=== PATIENT | male | born 1960 | race American Indian/Alaskan Native ===

== ENCOUNTER 2020-03-12 01:59 | Emergency (ER) | payer MEDICAID ==
--- NOTE | 2020-03-12 02:17 | EDM.PDOCBH ---
ED HPI GENERAL MEDICAL PROBLEM - General Chief Complaint: Drug or Alcohol Abuse Stated Complaint: MEDICAL VIA [facility] Time Seen by Provider: 03/12/20 02:10 Source of Information: Reports: Patient, EMS History Limitations: Reports: Intoxication - History of Present Illness INITIAL COMMENTS - FREE TEXT/NARRATIVE: 59-year-old male who is been drinking for a month, tonight his anxiety seemed worse than usual and he thought he was in an irregular heartbeat so he called the ambulance. He wants to go to treatment. It has been a year since he is been to detox. He was given some Versed by EMS in route for his "anxiety". He is not complaining of pain. Onset: Unknown/Unsure Duration: Week(s): (Has been drinking daily for several weeks) Associated Symptoms: Reports: Other (Palpitations). Denies: Chest Pain, Cough Treatments ACADEMIC ADVISOR: Reports: Aspirin, EKG knees Pain Score (Numeric/FACES): 8 - Related Data Allergies Allergy/AdvReac Type Severity Reaction Status Date / Time No Known Allergies Allergy Verified 03/12/20 02:01 Home Meds: Home Meds Aspirin [Adult Low Dose Aspirin EC] 162 mg PO DAILY 03/12/20 [History] Cetirizine HCl [Zyrtec] 10 mg PO DAILY 03/12/20 [History] tiZANidine [Zanaflex] 4 mg PO BID 03/12/20 [History] Past Medical History Neurological History: Reports: Concussion, TIA - Past Surgical History GI Surgical History: Reports: Colonoscopy Musculoskeletal Surgical History: Reports: Knee Replacement Social & Family History - Tobacco Use Smoking Status *Q: Current Every Day Smoker Years of Tobacco use: 45 Packs/Tins Daily: 1 - Caffeine Use Caffeine Use: Reports: None - Alcohol Use Days Per Week of Alcohol Use: 7 Number of Drinks Per Day: 15 Total Drinks Per Week: 105 Date of Last Drink: 03/12/20 Time of Last Drink: 00:00 - Recreational Drug Use Recreational Drug Use: Yes Recreational Drug Type: Reports: Marijuana/Hashish Recreational Drug Use Frequency: Daily ED ROS GENERAL - Review of Systems Review Of Systems: See Below Constitutional: Denies: Fever, Chills HEENT: Reports: No Symptoms Respiratory: Denies: Shortness of Breath Cardiovascular: Reports: Palpitations. Denies: Chest Pain GI/Abdominal: Reports: Nausea. Denies: Vomiting Skin: Reports: No Symptoms Neurological: Reports: Dizziness. Denies: Headache ED EXAM, BEHAVIORAL HEALTH - Physical Exam Exam: See Below Exam Limited By: No Limitations General Appearance: Alert, No Apparent Distress Eye Exam: Bilateral Eye: EOMI, Other Respiratory/Chest: No Respiratory Distress, Lungs Clear Cardiovascular: Regular Rate, Rhythm Extremities: Normal Inspection (Well-healed surgical scars over the knees, no peripheral edema) Neurological: Oriented x 3 Psychiatric: Alert, Normal Affect, Other (Somewhat anxious but cooperative and polite) COURSE, BEHAVIORAL HEALTH COMP - Course Vital Signs: Last Vital Signs Temp 98.9 F 03/12/20 02:02 Pulse 81 03/12/20 02:02 Resp 18 03/12/20 02:02 BP 135/74 03/12/20 02:02 Pulse Ox 94 L 03/12/20 02:02 Orders, Labs, Meds: Laboratory Tests 03/12/20 03/12/20 03/12/20 Range/Units 02:20 02:20 02:20 WBC 5.4 (4.5-11.0) K/uL RBC 5.34 (4.30-5.90) M/uL Hgb 16.3 H (12.0-15.0) g/dL Hct 49.5 (40.0-54.0) % MCV 93 (80-98) fL MCH 31 (27-31) pg MCHC 33 (32-36) % Plt Count 90 L (150-400) K/uL Neut % (Auto) 49 (36-66) % Lymph % (Auto) 39 (24-44) % [place] % (Auto) 10 H (2-6) % Eos % (Auto) 2 (2-4) % Baso % (Auto) 1 (0-1) % Sodium 140 (140-148) mmol/L Potassium 3.9 (3.6-5.2) mmol/L Chloride 103 (100-108) mmol/L Carbon Dioxide 29 (21-32) mmol/L Anion Gap 11.9 (5.0-14.0) mmol/L BUN 4 L (7-18) mg/dL Creatinine 0.9 (0.8-1.3) mg/dL Est Cr Clr Drug Dosing 89.00 mL/min Estimated GFR (MDRD) > 60 (>60) Glucose 93 (74-106) mg/dL Calcium 7.7 L (8.5-10.1) mg/dL Urine Opiates Screen (NEGATIVE) Ur Oxycodone Screen (NEGATIVE) Urine Methadone Screen (NEGATIVE) Ur Propoxyphene Screen (NEGATIVE) Ur Barbiturates Screen (NEGATIVE) Ur Tricyclics Screen (NEGATIVE) Ur Phencyclidine Scrn (NEGATIVE) Ur Amphetamine Screen (NEGATIVE) U Methamphetamines Scrn (NEGATIVE) Urine MDMA Screen (NEGATIVE) U Benzodiazepines Scrn (NEGATIVE) U Cocaine Metab Screen (NEGATIVE) U Marijuana (THC) Screen (NEGATIVE) Ethyl Alcohol 328 mg/dL 03/12/20 Range/Units 02:21 WBC (4.5-11.0) K/uL RBC (4.30-5.90) M/uL Hgb (12.0-15.0) g/dL Hct (40.0-54.0) % MCV (80-98) fL MCH (27-31) pg MCHC (32-36) % Plt Count (150-400) K/uL Neut % (Auto) (36-66) % Lymph % (Auto) (24-44) % [place] % (Auto) (2-6) % Eos % (Auto) (2-4) % Baso % (Auto) (0-1) % Sodium (140-148) mmol/L Potassium (3.6-5.2) mmol/L Chloride (100-108) mmol/L Carbon Dioxide (21-32) mmol/L Anion Gap (5.0-14.0) mmol/L BUN (7-18) mg/dL Creatinine (0.8-1.3) mg/dL Est Cr Clr Drug Dosing mL/min Estimated GFR (MDRD) (>60) Glucose (74-106) mg/dL Calcium (8.5-10.1) mg/dL Urine Opiates Screen Negative (NEGATIVE) Ur Oxycodone Screen Negative (NEGATIVE) Urine Methadone Screen Negative (NEGATIVE) Ur Propoxyphene Screen Negative (NEGATIVE) Ur Barbiturates Screen Negative (NEGATIVE) Ur Tricyclics Screen Negative (NEGATIVE) Ur Phencyclidine Scrn Negative (NEGATIVE) Ur Amphetamine Screen Negative (NEGATIVE) U Methamphetamines Scrn Negative (NEGATIVE) Urine MDMA Screen Negative (NEGATIVE) U Benzodiazepines Scrn Negative (NEGATIVE) U Cocaine Metab Screen Negative (NEGATIVE) U Marijuana (THC) Screen Presumptive positive H (NEGATIVE) Ethyl Alcohol mg/dL Re-Assessment/Re-Exam: EtOH, urine drug screen, CBC and BMP obtained. Detox does have a male bed available. EtOH returned 0.328, patient was sleeping soundly within 20 minutes of being in the emergency room. [facility] was called, patient is willing to go to detox. Departure - Departure Time of Disposition: 04:46 Disposition: DC/Tfer to Other 70 Clinical Impression: Alcohol abuse - Discharge Information Instructions: Alcohol Abuse and Dependence Information, Adult Referrals: PCP,None [Primary Care Provider] - Forms: ED Department Discharge Care Plan Goals: Patient is to be transferred to [facility] for detox from chronic alcoholism. Sepsis Event Note (ED) - Evaluation Sepsis Screening Result: No Definite Risk - Focused Exam Vital Signs: Vital Signs Temp Pulse Resp BP Pulse Ox 03/12/20 02:02 98.9 F 81 18 135/74 94 L
== END 2020-03-12 04:46 | disposition other institution (70) ==
LOC: JP.ED 01:59
DX: F10.10 Alcohol abuse, uncomplicated (principal); F17.210 Nicotine dependence, cigarettes, uncomplicated; Y90.7 Blood alcohol level of 200-239 mg/100 ml
CPT/HCPCS: 36415; 80048; 80305-QW; 80307; 85025; 99283; 99285

== ENCOUNTER 2020-10-18 11:38 | Emergency (ER) | payer MEDICARE, MEDICAID ==
[2020-10-18] MEDS ORDERED: Lidocaine 1% with EPINEPHrine 1:100,000 50 ML MDV SUBCUT STA (11:52)
[2020-10-18] MEDS ORDERED: Bacitracin Oint 1 GM U/D Packet TOP ONE (11:52)
--- NOTE | 2020-10-18 11:55 | EDM.PDOCBH ---
ED HPI GENERAL MEDICAL PROBLEM - General Chief Complaint: Drug or Alcohol Abuse Stated Complaint: FALL VIA [facility] Time Seen by Provider: 10/18/20 11:49 Source of Information: Reports: Patient, EMS, RN Notes Reviewed History Limitations: Reports: Intoxication - History of Present Illness INITIAL COMMENTS - FREE TEXT/NARRATIVE: 60-year-old gentleman presents emergency department today via EMS services, he admits to consuming alcohol this morning he has fallen hit his head but is unsure if there is any loss of consciousness he does have a laceration above his right eye he would like to go to [facility] [place] [facility] detoxification facility Right Eye Pain Score (Numeric/FACES): 2 - Related Data Allergies Allergy/AdvReac Type Severity Reaction Status Date / Time No Known Allergies Allergy Verified 10/18/20 11:42 Home Meds: Home Meds Aspirin [Adult Low Dose Aspirin EC] 162 mg PO DAILY 03/12/20 [History] Cetirizine HCl [Zyrtec] 10 mg PO DAILY 03/12/20 [History] tiZANidine [Zanaflex] 4 mg PO BID 03/12/20 [History] Past Medical History Neurological History: Reports: Concussion, TIA Psychiatric History: Reports: Addiction - Past Surgical History GI Surgical History: Reports: Colonoscopy Musculoskeletal Surgical History: Reports: Knee Replacement Social & Family History - Tobacco Use Tobacco Use Status *Q: Current Every Day Tobacco User Years of Tobacco use: 28 Packs/Tins Daily: 1.5 - Caffeine Use Caffeine Use: Reports: None - Alcohol Use Days Per Week of Alcohol Use: 7 Number of Drinks Per Day: 7 Total Drinks Per Week: 49 - Recreational Drug Use Recreational Drug Use: Yes Recreational Drug Type: Reports: Marijuana/Hashish Recreational Drug Use Frequency: Daily ED ROS GENERAL - Review of Systems Review Of Systems: See Below Constitutional: Reports: No Symptoms Respiratory: Reports: No Symptoms Cardiovascular: Reports: No Symptoms GI/Abdominal: Reports: No Symptoms Skin: Reports: Wound ED EXAM, BEHAVIORAL HEALTH - Physical Exam Exam: See Below (Wheelchair) Exam Limited By: Intoxication General Appearance: Alert, No Apparent Distress Eye Exam: Bilateral Eye: PERRL Nose: Normal Inspection, Normal Mucosa, No Blood, Other (No visualized hematoma). No: Clear Rhinorrhea Head: Normocephalic, Facial Tenderness, Other (Laceration above right eye) Neck: Normal Inspection, Supple, Non-Tender, Full Range of Motion Respiratory/Chest: No Respiratory Distress, Lungs Clear, Normal Breath Sounds, No Accessory Muscle Use, Chest Non-Tender Cardiovascular: Regular Rate, Rhythm, No Murmur GI/Abdominal: Soft, Non-Tender ED LACERATION PROCEDURES - Laceration/Wound Repair Right Face Lac/wound length in cm: 1.5 Appearance: Subcutaneous, Irregular, Clean Distal NVT: Neuro & Vascular Intact, No Tendon Injury Anesthetic Type: Local Local Anesthesia - Lidocaine (Xylocaine): 1% with EPI Local Anesthesia - Bupivicaine (Marcaine): 0.5% with EPI Local Anesthetic Volume: 2cc Skin Prep: Saline Saline irrigation (cc's): 60 Exploration/Debridement/Repair: Wound Explored, In a Bloodless Field, Explored to Base Closed with: Sutures Suture Size: 4-0 # of Sutures: 2 Suture Type: Nylon, Interrupted Sterile Dressing Applied: Nurse Tetanus Status Addressed: Yes (today) Complications: No COURSE, BEHAVIORAL HEALTH COMP - Course Vital Signs: Last Vital Signs Temp 97.9 F 10/18/20 11:39 Pulse 78 10/18/20 11:39 Resp 16 10/18/20 11:39 BP 141/89 H 10/18/20 11:39 Pulse Ox 96 10/18/20 11:39 Orders, Labs, Meds: Active Orders 24 hr Category Date Time Status Vaccines to be Administered [RC] PER UNIT ROUTINE Care 10/18/20 13:19 Active Laboratory Tests 10/18/20 10/18/20 10/18/20 Range/Units 11:51 12:04 12:04 WBC 6.8 (4.5-11.0) K/uL RBC 5.85 (4.30-5.90) M/uL Hgb 17.3 H (12.0-15.0) g/dL Hct 51.3 (40.0-54.0) % MCV 88 (80-98) fL MCH 30 (27-31) pg MCHC 34 (32-36) % Plt Count 324 (150-400) K/uL Neut % (Auto) 54 (36-66) % Lymph % (Auto) 36 (24-44) % [place] % (Auto) 7 H (2-6) % Eos % (Auto) 2 (2-4) % Baso % (Auto) 1 (0-1) % Sodium 145 (140-148) mmol/L Potassium 3.1 L (3.6-5.2) mmol/L Chloride 101 (100-108) mmol/L Carbon Dioxide 31 (21-32) mmol/L Anion Gap 16.1 H (5.0-14.0) mmol/L BUN 3 L (7-18) mg/dL Creatinine 0.8 (0.8-1.3) mg/dL Est Cr Clr Drug Dosing 98.85 mL/min Estimated GFR (MDRD) > 60 (>60) Glucose 122 H (74-106) mg/dL Calcium 9.0 D (8.5-10.1) mg/dL Total Bilirubin 0.4 (0.2-1.0) mg/dL AST 74 H (15-37) U/L ALT 122 H (12-78) U/L Alkaline Phosphatase 131 H (46-116) U/L Total Protein 8.2 (6.4-8.2) g/dL Albumin 3.3 L (3.4-5.0) g/dL Globulin 4.9 H (2.3-3.5) g/dL Albumin/Globulin Ratio 0.7 L (1.2-2.2) Urine Opiates Screen Negative (NEGATIVE) Ur Oxycodone Screen Negative (NEGATIVE) Urine Methadone Screen Negative (NEGATIVE) Ur Propoxyphene Screen Negative (NEGATIVE) Ur Barbiturates Screen Negative (NEGATIVE) Ur Tricyclics Screen Negative (NEGATIVE) Ur Phencyclidine Scrn Negative (NEGATIVE) Ur Amphetamine Screen Negative (NEGATIVE) U Methamphetamines Scrn Negative (NEGATIVE) Urine MDMA Screen Negative (NEGATIVE) U Benzodiazepines Scrn Negative (NEGATIVE) U Cocaine Metab Screen Negative (NEGATIVE) U Marijuana (THC) Screen Presumptive positive H (NEGATIVE) Ethyl Alcohol mg/dL 10/18/20 Range/Units 12:04 WBC (4.5-11.0) K/uL RBC (4.30-5.90) M/uL Hgb (12.0-15.0) g/dL Hct (40.0-54.0) % MCV (80-98) fL MCH (27-31) pg MCHC (32-36) % Plt Count (150-400) K/uL Neut % (Auto) (36-66) % Lymph % (Auto) (24-44) % [place] % (Auto) (2-6) % Eos % (Auto) (2-4) % Baso % (Auto) (0-1) % Sodium (140-148) mmol/L Potassium (3.6-5.2) mmol/L Chloride (100-108) mmol/L Carbon Dioxide (21-32) mmol/L Anion Gap (5.0-14.0) mmol/L BUN (7-18) mg/dL Creatinine (0.8-1.3) mg/dL Est Cr Clr Drug Dosing mL/min Estimated GFR (MDRD) (>60) Glucose (74-106) mg/dL Calcium (8.5-10.1) mg/dL Total Bilirubin (0.2-1.0) mg/dL AST (15-37) U/L ALT (12-78) U/L Alkaline Phosphatase (46-116) U/L Total Protein (6.4-8.2) g/dL Albumin (3.4-5.0) g/dL Globulin (2.3-3.5) g/dL Albumin/Globulin Ratio (1.2-2.2) Urine Opiates Screen (NEGATIVE) Ur Oxycodone Screen (NEGATIVE) Urine Methadone Screen (NEGATIVE) Ur Propoxyphene Screen (NEGATIVE) Ur Barbiturates Screen (NEGATIVE) Ur Tricyclics Screen (NEGATIVE) Ur Phencyclidine Scrn (NEGATIVE) Ur Amphetamine Screen (NEGATIVE) U Methamphetamines Scrn (NEGATIVE) Urine MDMA Screen (NEGATIVE) U Benzodiazepines Scrn (NEGATIVE) U Cocaine Metab Screen (NEGATIVE) U Marijuana (THC) Screen (NEGATIVE) Ethyl Alcohol 316 mg/dL Medications Discontinued Medications Generic Name Dose Route Start Last Admin Trade Name Freq PRN Reason Stop Dose Admin Bacitracin 1 dose 10/18/20 11:52 10/18/20 14:32 Bacitracin Oint 1 Gm U/D Packet TOP 10/18/20 11:53 1 dose ONETIME ONE Administration Diphtheria/Tetanus/Acell Pertussis 0.5 ml 10/18/20 13:19 10/18/20 14:33 Diphtheria,Pertussis(Acell),Tetanus Vaccine 0.5 Ml Syringe IM 10/18/20 13:20 0.5 ml .ONCE ONE Administration Lidocaine/Epinephrine 20 ml 10/18/20 11:52 10/18/20 14:32 Lidocaine 1% With Epinephrine 1:100,000 50 Ml Mdv SUBCUT 10/18/20 11:53 20 ml NOW STA Administration Departure - Departure Time of Disposition: 14:39 Disposition: Home, Self-Care 01 Condition: Poor Clinical Impression: Alcohol abuse Nasal bone fracture Qualifiers: Encounter type: initial encounter Fracture type: closed Qualified Code(s): S02.2XXA - Fracture of nasal bones, initial encounter for closed fracture Facial laceration Qualifiers: Encounter type: initial encounter Qualified Code(s): S01.81XA - Laceration without foreign body of other part of head, initial encounter - Discharge Information Instructions: Alcohol Use Disorder, Nasal Fracture, [id number], Laceration Care, Adult Referrals: PCP,None [Primary Care Provider] - Forms: ED Department Discharge Additional Instructions: Please follow-up with your primary care in the next 1 to 2 days for reevaluation of your nasal bone fracture, suture removal in 3 days return to the emergency department or follow-up with your primary care. Call return to the emergency department worsening of symptoms Sepsis Event Note (ED) - Evaluation Sepsis Screening Result: No Definite Risk - Focused Exam Vital Signs: Vital Signs Temp Pulse Resp BP Pulse Ox 10/18/20 11:39 97.9 F 78 16 141/89 H 96 - My Orders Last 24 Hours: My Active Orders 10/18/20 13:19 Vaccines to be Administered [RC] PER UNIT ROUTINE - Assessment/Plan Last 24 Hours: My Active Orders 10/18/20 13:19 Vaccines to be Administered [RC] PER UNIT ROUTINE Plan: Assessment Acuity = acute Site and laterality = 1 cm laceration above the right eyebrow, acute right nasal bone fracture comminuted, chronic septal deviation, alcohol intoxication Etiology = fall secondary to EtOH Manifestations = none Location of injury = Home Lab values = CBC unremarkable potassium low 3.1 consistent hypokalemia AST elevated 74 ALT elevated 122 TSH positive and urine drug screen alcohol is 316 Plan Unfortunately [facility] detox[facility] facility was full. He elected just to go home therefore he will be discharged home recommend follow-up primary care 1 to 2 days for reevaluation of nasal bone fracture, suture removal 3 to 4 days follow wound care instruction This note was dictated using [employer] voice recognition software please call with any questions on syntax or grammar.
--- NOTE | 2020-10-18 12:51 | CT ---
Head wo Cont CLINICAL HISTORY: Trauma fall COMPARISON: None TECHNIQUE: Transverse scans were obtained from the base of the skull through the vertex without IV contrast on a multislice, multidetector CT scanner. Auto dosage reduction and iterative reconstruction techniques employed. FINDINGS: No focal abnormal parenchymal density is identified.. There is no mass effect, hemorrhage, or extraaxial collection. The basal cisterns and sulci over the convexities are prominent. The ventricles are normal for age. Incidental note of pansinusitis IMPRESSION: Atrophic changes No acute intracranial process Pansinusitis
--- NOTE | 2020-10-18 12:57 | CT ---
Max Facial Sinus wo Cont CLINICAL HISTORY: Trauma TECHNIQUE: Multiple contiguous axial sections were obtained through the facial bones and paranasal sinuses with coronal and sagittal reconstructions. Auto dosage reduction and iterative reconstruction techniques employed. FINDINGS: There is some soft tissue swelling in the right periorbital region. The bony orbit is intact. The orbital fat planes are intact. No intraconal or extraconal masses are identified. There is moderate rightward deviation the nasal septum which is likely chronic. There is a defect in the right lateral nasal bone which is suspect for acute comminuted fracture. The zygomatic arches appear intact. Patient has severe pansinusitis with near complete opacification of the left maxillary sinus. The anterior nasal spine is downward angulated. No fracture line is seen. There is moderate osteoarthritic change in the TMJs. This is greater on the left. Mandible is intact. Patient is a dentulous. 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
[2020-10-18] MEDS ORDERED: Diphtheria,Pertussis(Acell),Tetanus Vaccine 0.5 ML Syringe IM ONE (13:19)
== END 2020-10-18 15:01 | disposition home or self-care (01) ==
LOC: JP.ED 11:38
DX: S02.2XXA Fracture of nasal bones, initial encounter for closed fracture (principal); S01.81XA Laceration without foreign body of other part of head, initial encounter; F10.129 Alcohol abuse with intoxication, unspecified; Y90.8 Blood alcohol level of 240 mg/100 ml or more; Z72.0 Tobacco use; Z23 Encounter for immunization; Z79.82 Long term (current) use of aspirin; Z79.899 Other long term (current) drug therapy; W01.10XA Fall on same level from slipping, tripping and stumbling with subsequent striking against unspecified object, initial encounter
CPT/HCPCS: 12011; 36415; 70450; 70450-26; 70486; 70486-26; 80053; 80305-QW; 80307; 85025; 90471; 90715; 99283; 99284-25

== ENCOUNTER 2020-11-30 23:55 | Emergency (ER) | payer MEDICARE, MEDICAID ==
--- NOTE | 2020-12-01 01:09 | EDM.PDOCBH ---
ED HPI GENERAL MEDICAL PROBLEM - General Chief Complaint: Drug or Alcohol Abuse Stated Complaint: MEDICAL VIA NORTH Time Seen by Provider: 12/01/20 01:15 Source of Information: Reports: Patient, EMS History Limitations: Reports: No Limitations - History of Present Illness INITIAL COMMENTS - FREE TEXT/NARRATIVE: Patient presents via EMS due to EtOH intoxication requesting alcohol rehab. He states he drinks all day--does not quantify. He states he has been to rehab many times in the past. PMH--alcoholism, RANGEL, back spasms Meds--allergy medication daily, tizanidine NKDA Tob--1ppd EtOH--all day, daily--he does not quantify Drugs--marijuana - Related Data Allergies Allergy/AdvReac Type Severity Reaction Status Date / Time No Known Allergies Allergy Verified 12/01/20 00:22 Home Meds: Home Meds Aspirin [Adult Low Dose Aspirin EC] 162 mg PO DAILY 03/12/20 [History] Cetirizine HCl [Zyrtec] 10 mg PO DAILY 03/12/20 [History] tiZANidine [Zanaflex] 4 mg PO BID 03/12/20 [History] Past Medical History Musculoskeletal History: Reports: Back Pain, Chronic Neurological History: Reports: Concussion, TIA Psychiatric History: Reports: Addiction, Other (See Below) Other Psychiatric History: ETOH addiction Endocrine/Metabolic History: Reports: Obesity/BMI 30+ - Past Surgical History GI Surgical History: Reports: Colonoscopy Musculoskeletal Surgical History: Reports: Knee Replacement Social & Family History - Tobacco Use Tobacco Use Status *Q: Current Every Day Tobacco User Years of Tobacco use: 45 Packs/Tins Daily: 1 - Caffeine Use Caffeine Use: Reports: None - Alcohol Use Days Per Week of Alcohol Use: 7 Number of Drinks Per Day: 12 Total Drinks Per Week: 84 - Recreational Drug Use Recreational Drug Use: Yes Drug Use in Last 12 Months: Yes Recreational Drug Type: Reports: Marijuana/Hashish Recreational Drug Use Frequency: Daily ED ROS GENERAL - Review of Systems Review Of Systems: Comprehensive ROS is negative, except as noted in HPI. Constitutional: Reports: Other (alcohol intoxication) ED EXAM, BEHAVIORAL HEALTH - Physical Exam Exam: See Below Exam Limited By: No Limitations General Appearance: Alert, No Apparent Distress, Obese, Other (strong smell of alcohol on his person; laughing) Ears: Normal External Exam Nose: Normal Inspection Throat/Mouth: Normal Inspection, Normal Voice, No Airway Compromise Head: Atraumatic, Normocephalic Neck: Normal Inspection, Supple, Full Range of Motion Respiratory/Chest: No Respiratory Distress, Lungs Clear, Normal Breath Sounds Cardiovascular: Regular Rate, Rhythm, No Edema, No Murmur GI/Abdominal: Normal Bowel Sounds, Soft, Non-Tender (Male) Exam: Deferred Rectal (Males) Exam: Deferred Back Exam: Normal Inspection Extremities: Normal Inspection, No Pedal Edema, Normal Capillary Refill Neurological: Alert, Normal Mood/Affect, Normal Cognition Psychiatric: Alert, Normal Affect, Normal Cognition, Normal Mood Skin Exam: Warm, Dry, Intact, Normal color COURSE, BEHAVIORAL HEALTH COMP - Course Vital Signs: Last Vital Signs Temp 98.5 F 12/01/20 06:39 Pulse 79 12/01/20 06:39 Resp 15 12/01/20 06:39 BP 164/84 H 12/01/20 06:39 Pulse Ox 94 L 12/01/20 06:39 Orders, Labs, Meds: Active Orders 24 hr Category Date Time Status Isolation [COMM] Stat Oth 12/01/20 01:20 Ordered Laboratory Tests 12/01/20 12/01/20 12/01/20 Range/Units 01:30 01:41 01:42 Urine Opiates Screen Negative (NEGATIVE) Ur Oxycodone Screen Negative (NEGATIVE) Urine Methadone Screen Negative (NEGATIVE) Ur Propoxyphene Screen Negative (NEGATIVE) Ur Barbiturates Screen Negative (NEGATIVE) Ur Tricyclics Screen Negative (NEGATIVE) Ur Phencyclidine Scrn Negative (NEGATIVE) Ur Amphetamine Screen Negative (NEGATIVE) U Methamphetamines Scrn Negative (NEGATIVE) Urine MDMA Screen Negative (NEGATIVE) U Benzodiazepines Scrn Negative (NEGATIVE) U Cocaine Metab Screen Negative (NEGATIVE) U Marijuana (THC) Screen Presumptive positive H (NEGATIVE) Ethyl Alcohol 436 mg/dL SARS CoV-2 RNA Rapid JACKY Negative 12/01/20 Range/Units 06:23 Urine Opiates Screen (NEGATIVE) Ur Oxycodone Screen (NEGATIVE) Urine Methadone Screen (NEGATIVE) Ur Propoxyphene Screen (NEGATIVE) Ur Barbiturates Screen (NEGATIVE) Ur Tricyclics Screen (NEGATIVE) Ur Phencyclidine Scrn (NEGATIVE) Ur Amphetamine Screen (NEGATIVE) U Methamphetamines Scrn (NEGATIVE) Urine MDMA Screen (NEGATIVE) U Benzodiazepines Scrn (NEGATIVE) U Cocaine Metab Screen (NEGATIVE) U Marijuana (THC) Screen (NEGATIVE) Ethyl Alcohol 329 mg/dL SARS CoV-2 RNA Rapid JACKY Medical Clearance: 12/01/20 04:46 awaiting repeat EtOH level, facility accepting request that his level be <400; repeat draw if awake at 0500 Departure - Departure Time of Disposition: 06:58 Disposition: DC/Tfer to Inpt Rehab Fac 62 Condition: Good Clinical Impression: Alcohol abuse - Discharge Information *PRESCRIPTION DRUG MONITORING PROGRAM REVIEWED*: Not Applicable *COPY OF PRESCRIPTION DRUG MONITORING REPORT IN PATIENT AI: Not Applicable Referrals: PCP,None [Primary Care Provider] - Forms: ED Department Discharge Sepsis Event Note (ED) - Focused Exam Vital Signs: Vital Signs Temp Pulse Resp BP Pulse Ox 12/01/20 06:39 98.5 F 79 15 164/84 H 94 L 12/01/20 01:45 98 F 80 18 151/86 H 96 12/01/20 00:04 97.6 F 18 151/81 H 97 - My Orders Last 24 Hours: My Active Orders 12/01/20 01:20 Isolation [COMM] Stat - Assessment/Plan Last 24 Hours: My Active Orders 12/01/20 01:20 Isolation [COMM] Stat
== END 2020-12-01 08:14 ==
LOC: JP.ED 23:55
DX: F10.129 Alcohol abuse with intoxication, unspecified (principal); E66.9 Obesity, unspecified; Z68.29 Body mass index [BMI] 29.0-29.9, adult; Y90.8 Blood alcohol level of 240 mg/100 ml or more; Z72.0 Tobacco use; Z20.822 Contact with and (suspected) exposure to COVID-19
CPT/HCPCS: 36415; 80305; 80307; 99284; U0002